=== PATIENT | male | born 1980 ===

== ENCOUNTER 2017-07-06 11:36 | Emergency (ER) | payer MEDICAID ==
[2017-07-06 11:54] VITALS: TEMP 98.7; BMI 40.1
[2017-07-06] MEDS ORDERED: Sodium Chloride 0.9% 1,000 ML IV STA (12:20)
--- NOTE | 2017-07-06 12:29 | ED PDOC ---
HPI: SOB/CHF/COPD Time Seen by Provider: 07/06/17 11:48 Chief Complaint (Nursing): Shortness Of Breath Chief Complaint (Provider): Shortness of breath History Per: Patient History/Exam Limitations: no limitations Onset/Duration Of Symptoms: Hrs (prior to arrival ) Current Symptoms Are (Timing): Still Present Additional Complaint(s): Alfred Jenkins is a 37 year old male with a past surgical history of an appendectomy and a family history of diabetes, hypertension, and cancer presenting to the ED for an evaluation of several medical complaints experienced after a night of drinking. The patient states he went out last night had a [place] iced tea, beer, hard liquor at a restaurant, another drink, and then smoked weed. Waking up this morning the patient states he could not breath, had a headache, had some chest pain, pain in his kidneys, could not breathe through his nose, and felt nauseous which prompted his ED visit. He denies any episodes of vomiting and no other medical problems. PMD: None Provided Past Medical History Reviewed: Historical Data, Nursing Documentation, Vital Signs Vital Signs: Last Vital Signs Temp 98.7 F 07/06/17 11:52 Pulse 97 H 07/06/17 11:52 Resp 21 07/06/17 12:47 BP 145/79 07/06/17 11:52 Pulse Ox 98 07/06/17 12:47 - Medical History PMH: No Chronic Diseases Denies: Chronic Kidney Disease - Surgical History Surgical History: Appendectomy, Tonsillectomy - Family History Family History: States: Diabetes, Hypertension - Social History Current smoker - smoking cessation education provided: No Ex-Smoker (has not smoked in the last 12 months): No Drugs: Cannabis - Allergies Allergies/Adverse Reactions: Allergies Allergy/AdvReac Type Severity Reaction Status Date / Time No Known Allergies Allergy Verified 07/06/17 12:05 Review of Systems ROS Statement: Except As Marked, All Systems Reviewed And Found Negative Constitutional: Negative for: Fever ENT: Positive for: Nose Congestion Cardiovascular: Positive for: Other (chest tightness when breathing) Gastrointestinal: Positive for: Nausea, Diarrhea (minor). Negative for: Vomiting Musculoskeletal: Positive for: Neck Pain. Negative for: Back Pain (no upper back pain) Neurological: Positive for: Headache Physical Exam - Reviewed Nursing Documentation Reviewed: Yes Vital Signs Reviewed: Yes - Physical Exam Appears: Positive for: Non-toxic, No Acute Distress Head Exam: Positive for: ATRAUMATIC, NORMOCEPHALIC Skin: Negative for: Rash Neck: Positive for: Normal, Painless ROM, Supple Cardiovascular/Chest: Positive for: Regular Rate, Rhythm. Negative for: Murmur Respiratory: Positive for: Normal Breath Sounds. Negative for: Respiratory Distress Gastrointestinal/Abdominal: Positive for: Soft, Tenderness (epigastric tenderness ) Back: Positive for: Normal Inspection. Negative for: L CVA Tenderness, R CVA Tenderness Neurologic/Psych: Positive for: Alert, Oriented (x3) - Laboratory Results Result Diagrams: 07/06/17 12:54 07/06/17 12:54 - ECG O2 Sat by Pulse Oximetry: 96 (RA) Pulse Ox Interpretation: Normal Medical Decision Making Medical Decision Making: Time: 11:48 Impression: Alcohol, Gastritis Plan: * ED EKG * Alcohol Serum * CMP * Drug Screen, Urine * Troponin I * CBC (with differential) * NS 0.9% 1,000 ml IV 1,000 mls/hr * Pepcid 20 mg IVP * Tylenol 650 mg pO * Zofran 4 mg IVP * Reevaluation Scribe Attestation: Documented by Caterina Alvarado, acting as a scribe for Yolanda Grider MD. Provider Scribe Attestation: All medical record entries made by the Scribe were at my direction and personally dictated by me. I have reviewed the chart and agree that the record accurately reflects my personal performance of the history, physical exam, medical decision making, and the department course for this patient. I have also personally directed, reviewed, and agree with the discharge instructions and disposition. patient is feeling better. x-rays suggestive gas and stool as cause of abdominal discomfort. Disposition - Clinical Impression Clinical Impression: Constipation, Alcoholic gastritis - Patient ED Disposition Is Patient to be Admitted: No Doctor Will See Patient In The: Office Counseled Patient/Family Regarding: Diagnosis, Need For Followup - Disposition Disposition: Routine/Home Disposition Time: 14:52 Condition: STABLE Instructions: Gastritis (ED), Constipation (ED) Forms: [facility] [employer] (Ch[place]an) - POA Present On Arrival: None
[2017-07-06 13:03] LABS: BASO # 0.1 K/uL (0.0-0.2); EOS # 0.2 K/uL (0.0-0.7); EOS % 1.2 % (0.0-4.0); HEMATOCRIT 52.6 % (35.0-51.0); LYMPH % 20.7 % (20.0-40.0); MEAN CELL VOLUME 91.7 fl (80.0-94.0); MEAN CORPUSCULAR HEMOGLOBIN 30.6 pg (27.0-31.0); MEAN CORPUSCULAR HGB CONC 33.3 g/dL (33.0-37.0); MEAN PLATELET VOLUME 9.4 fl (7.2-11.7); MONO # 1.1 K/uL (0.0-0.8); MONO % 7.8 % (0.0-10.0); NEUT % 69.3 % (50.0-75.0); NRBC % 0.1 % (0.0-0.0); RED CELL DISTRIBUTION WIDTH 13.7 % (11.5-14.5); WHITE BLOOD COUNT 14.5 K/uL (4.8-10.8)
[2017-07-06 13:32] LABS: ALB/GLOB RATIO 1.5 (1.0-2.1); ALCOHOL SERUM < 10 mg/dl (0-10); ALKALINE PHOSPHATASE 96 U/L (38-126); ALT/SGPT 59 U/L (21-72); AST/SGOT 43 U/L (17-59); BILIRUBIN,TOTAL 0.5 mg/dl (0.2-1.3); BLOOD UREA NITROGEN 18 mg/dl (9-20); CALCIUM 8.6 mg/dL (8.4-10.2); CARBON DIOXIDE 21 mmol/L (22-30); CHLORIDE 109 mmol/L (98-107); GFR AFRICAN-AMERICAN > 60; GLUCOSE,RANDOM 161 mg/dL (75-110); POTASSIUM 3.9 MMOL/L (3.6-5.0); SODIUM 141 mmol/l (132-148); TOTAL PROTEIN 6.6 G/DL (6.3-8.2)
--- NOTE | 2017-07-06 14:54 | RAD ---
PROCEDURE: Radiographs of the chest and abdomen (obstructive series) HISTORY: abdominal pain COMPARISON: No prior. TECHNIQUE: AP radiograph of the chest, with upright and supine radiographs of the abdomen. FINDINGS: CHEST: Lungs: Clear. Cardiovascular: Normal size heart. No pulmonary vascular congestion. Pleura: No pleural fluid. No pneumothorax. Other findings: None. ABDOMEN AND PELVIS: Bowel: Unremarkable bowel gas pattern. No evidence of mechanical obstruction. Abundant stool within the colon. Free air: None. Bones: Unremarkable. Other findings: None. IMPRESSION: Unremarkable radiographs of chest and abdomen. No evidence of mechanical bowel obstruction.
[2017-07-06 15:03] VITALS: BP 141/81; PULSE 78; RESP 18; O2SAT 98
--- NOTE | 2017-07-07 08:41 | CARD ---
APPROVED REPORT EKG Measurement Heart [id number] <Conclusion> Normal sinus rhythm Possible Left atrial enlargement Borderline ECG
== END 2017-07-06 15:02 | disposition home or self-care (01) ==
LOC: H.ER 11:36
DX: K59.00 Constipation, unspecified (principal); K29.20 Alcoholic gastritis without bleeding
CPT/HCPCS: 74022; 80053; 80320; 84484; 85025; 93005; 96361; 96374; 96375; 99284; J2405; J7040